=== PATIENT | male | born 1980 | race Two or more races ===

== ENCOUNTER 2022-03-29 18:08 | Emergency (ER) | payer MEDICAID ==
[~2022-03-29] VITALS: Ht 172.7 cm; Wt 81.8 kg
[2022-03-29 19:47] LABS: Urine Bacteria NONE SEEN /hpf (None Seen); Urine Blood Negative /uL (Negative); Urine Specific Gravity 1.015 (1.001-1.035); Urine WBC 1 /hpf (0 - 3)
[2022-03-29 21:25] VITALS: BP 149/92
[2022-03-29] MEDS ORDERED: CLOT1CRE56 TOP (21:26)
[2022-03-29] MEDS ORDERED: PROM1SOL4 PO (21:26)
[2022-03-30] MEDS ORDERED: ALBUAER3 IN (05:30)
== END 2022-03-29 21:32 | disposition home or self-care (01) ==
LOC: ER 18:08
DX: J40 Bronchitis, not specified as acute or chronic (principal); B37.42 Candidal balanitis; Z87.891 Personal history of nicotine dependence
CPT/HCPCS: 71046; 81001